=== PATIENT | male | born 1960 | race Caucasian/White ===

== ENCOUNTER 2016-06-30 18:21 | Emergency (ER) | payer OTHER ==
[~2016-06-30] VITALS: Ht 175.2 cm; Wt 78.9 kg
[~2016-06-30 18:21] MED LIST: ACETAMINOPHEN-O1 TAB PO; AMLODIPINE BESYL5 MG PO; AMOXICILLIN500 M2 PO; AUGMENTIN 875875 MG PO; BP MED; CIPRO500 MG PO; CORTISPORIN SUS10 ML OT; HYDROCODONE BIT1 T11 PO; LISINOPRIL5 MG PO; NAPROSYN500 MG PO; NATURE'S BLEND F1 MG PO; NORCO 5-325 TA1 EACH PO; PERCOCET 325 MG1 TA2 PO; PERCOCET 325 MG1 TA7 PO; PREDNISONE50 MG PO; THERA TABS1 TAB PO; TRAMADOL HCL50 MG PO; VICODIN 5/500 505 MG PO; VICODIN 500 MG-1 TAB PO; VICODIN ES 7501 TAB PO; VITAMIN B-11 TAB PO; ZOFRAN4 MG PO; ZOLOFT25 MG PO; [UNRECOGNIZED DRUG - REMARK]
[2016-06-30] MEDS ORDERED: VALIUM10 MG PO (18:41)
[2016-06-30] MEDS ORDERED: ATIVAN1 MG PO (18:41)
[2016-06-30 20:14] LABS: ALBUMIN 3.2 gm/dl (3.1-4.5); ALKALINE PHOSPHATASE 96 U/L (45-117); BILIRUBIN, TOTAL 0.5 mg/dl (0.2-1.0); BUN 14 mg/dl (7-24); CARBON DIOXIDE 26 mmol/L (21-32); CHLORIDE 106 mmol/L (98-107); EST GLOM FILT AFRICAN AMERICAN > 60 ml/min; GLUCOSE 104 mg/dL (65-99); MAGNESIUM 1.8 mg/dL (1.5-2.1); POTASSIUM 3.8 mmol/L (3.5-5.1); SGOT/AST 22 IU/L (3-35); SGPT/ALT 42 U/L (12-78); SODIUM 142 mmol/L (136-145)
[2016-06-30 20:20] LABS: TROPONIN I < 0.015 ng/ml (<0.045)
[2016-06-30 20:32] LABS: BILIRUBIN NEGATIVE (NEGATIVE); BLOOD NEGATIVE (NEGATIVE); CLARITY SL CLOUDY (CLEAR); COLOR YELLOW (YELLOW); GLUCOSE NEGATIVE (NEGATIVE); KETONE NEGATIVE (NEGATIVE); LEUKO ESTERASE NEGATIVE (NEGATIVE); NITRITE NEGATIVE (NEGATIVE); PH 6.5 (5.0-9.0); PROTEIN NEGATIVE (NEGATIVE)
[2016-06-30 20:41] LABS: RBC 0-2 rbc/hpf (0-2); URINE REFLEX COMMENT NO (NO); WBC 0-2 wbc/hpf (0-5)
[2016-06-30 21:13] LABS: BASO # 0.1 10*3/uL (0.0-0.1); BASO % 0.9 % (0.0-1.0); EOS # 0.4 10*3/uL (0.0-0.4); EOS % 4.3 % (1.0-4.0); HEMATOCRIT 31.9 % (42.0-52.0); HEMOGLOBIN 10.3 g/dl (14.0-18.0); LYMPH # 1.7 10*3/uL (1.3-4.4); MEAN CELL VOLUME 92.7 fl (80.0-94.0); MEAN CORPUSCULAR HGB 29.9 pg (27.0-31.0); MEAN CORPUSCULAR HGB CONC 32.3 g/dl (33.0-37.0); MEAN PLATELET VOLUME 9.6 fl (9.6-12.3); MONO # 0.7 10*3/uL (0.1-1.0); MONO % 7.3 % (3.0-9.0); NEUT % 68.3 % (47.0-73.0); PLATELET COUNT AUTOMATED 207 10*3/uL (130-400); RED BLOOD COUNT 3.44 10*6/uL (4.50-5.90); RED CELL DISTRI WIDTH 13.2 % (0-14.5); WHITE BLOOD COUNT 8.9 10*3/uL (4.8-10.8)
[2016-06-30 21:23] LABS: PROTHROMBIN TIME 10.8 SECONDS (9.0-12.4)
[2016-06-30 21:51] VITALS: BP 128/86
[2016-06-30] MEDS ORDERED: ACETAMINOPHEN325 M2 PO (22:44)
[2016-06-30] MEDS ORDERED: MUCINEX DM 30/61 TAB PO (22:44)
[2016-06-30] MEDS ORDERED: ZITHROMAX250 MG PO (22:44)
== END 2016-06-30 22:40 | disposition home or self-care (01) ==
LOC: ED 18:21
PROVIDERS: Emergency Medicine Emergency Medical Services
DX: R07.89 Other chest pain (principal); J20.9 Acute bronchitis, unspecified; F17.210 Nicotine dependence, cigarettes, uncomplicated; J44.9 Chronic obstructive pulmonary disease, unspecified; M19.90 Unspecified osteoarthritis, unspecified site; F12.10 Cannabis abuse, uncomplicated; Z98.890 Other specified postprocedural states; Z79.899 Other long term (current) drug therapy

== ENCOUNTER → 2016-07-16 | Outpatient (CLI) | payer OTHER ==
[~2016-07-16] MED LIST changes: +ACETAMINOPHEN325 M2 PO; +ATIVAN1 MG PO; +MUCINEX DM 30/61 TAB PO; +VALIUM10 MG PO; +ZITHROMAX250 MG PO
[2016-07-17 22:05] LABS: HEPATITIS C QNT 3100000 IU/mL (.)
== END | disposition home or self-care (01) ==
LOC: LAB 15:09
PROVIDERS: Internal Medicine Gastroenterology
DX: B19.20 Unspecified viral hepatitis C without hepatic coma (principal)

== ENCOUNTER → 2016-07-17 | Outpatient (CLI) | payer OTHER | END | disposition home or self-care (01) | LOC: ORTHO 04:00 | DX: M19.042 Primary osteoarthritis, left hand (principal); M19.041 Primary osteoarthritis, right hand; M25.541 Pain in joints of right hand; M25.542 Pain in joints of left hand; M25.532 Pain in left wrist; M25.531 Pain in right wrist; Z47.1 Aftercare following joint replacement surgery ==

== ENCOUNTER → 2016-07-20 | Outpatient (CLI) | payer OTHER ==
--- NOTE | ~2016-07-20 | EKG ---
[place], [place] ELECTROCARDIOGRAM REPORT NAME: LISSA ESPINAL UNIT #: [id number] ROOM: DOCTOR: FORTINO SALCIDO MD BIRTHDATE: [birth year] DOS: 07/21/2016 TIME: 16:14. FINDINGS: 1. Ectopic atrial rhythm with short VT-interval. 2. Otherwise normal electrocardiogram. FORTINO SALCIDO MD CM:EKGRPT:ELECTROCARDIOGRAM REPORT 1903 01 FORTINO SALCIDO MD
== END | disposition home or self-care (01) ==
LOC: RESCLI 11:19
DX: Z01.818 Encounter for other preprocedural examination (principal); I10 Essential (primary) hypertension; J45.31 Mild persistent asthma with (acute) exacerbation; F41.9 Anxiety disorder, unspecified

== ENCOUNTER → 2016-08-06 | Outpatient (CLI) | payer OTHER ==
[~2016-08-06] VITALS: Ht 175.2 cm; Wt 74.8 kg
[~2016-08-06] MED LIST changes: +MOTRIN 600 MG E4 TAB PO
--- NOTE | ~2016-08-06 | EKG ---
[place], [place] ELECTROCARDIOGRAM REPORT NAME: LISSA ESPINAL UNIT #: [id number] ROOM: DOCTOR: FORTINO SALCIDO MD BIRTHDATE: [birth year] DOS: 08/06/2016 TIME: 1451 hours. FINDINGS: 1. Normal sinus rhythm with probable ectopic atrial pacer and short HI interval. 2. Otherwise normal electrocardiogram. FORTINO SALCIDO MD CM:EKGRPT:ELECTROCARDIOGRAM REPORT [id number] FORTINO SALCIDO MD
[2016-08-06 14:31] LABS: BASO # 0.1 10*3/uL (0.0-0.1); BASO % 1.2 % (0.0-1.0); EOS # 0.5 10*3/uL (0.0-0.4); EOS % 5.5 % (1.0-4.0); HEMATOCRIT 37.7 % (42.0-52.0); LYMPH # 2.4 10*3/uL (1.3-4.4); LYMPH % 26.1 % (27.0-41.0); MEAN CELL VOLUME 93.8 fl (80.0-94.0); MEAN CORPUSCULAR HGB 29.9 pg (27.0-31.0); MEAN CORPUSCULAR HGB CONC 31.8 g/dl (33.0-37.0); MEAN PLATELET VOLUME 9.2 fl (9.6-12.3); MONO # 0.7 10*3/uL (0.1-1.0); NEUT # 5.4 10*3/uL (2.3-7.9); NEUT % 59.1 % (47.0-73.0); PLATELET COUNT AUTOMATED 214 10*3/uL (130-400); RED BLOOD COUNT 4.02 10*6/uL (4.50-5.90); RED CELL DISTRI WIDTH 13.2 % (0-14.5); WHITE BLOOD COUNT 9.1 10*3/uL (4.8-10.8)
[2016-08-06 14:38] LABS: BILIRUBIN NEGATIVE (NEGATIVE); BLOOD NEGATIVE (NEGATIVE); CLARITY SL CLOUDY (CLEAR); COLOR YELLOW (YELLOW); GLUCOSE NEGATIVE (NEGATIVE); KETONE NEGATIVE (NEGATIVE); LEUKO ESTERASE NEGATIVE (NEGATIVE); NITRITE NEGATIVE (NEGATIVE); PH 5.5 (5.0-9.0); PROTEIN NEGATIVE (NEGATIVE); UROBILINOGEN 0.2 E.U./dl (0.2-1.0)
[2016-08-06 15:01] LABS: ALBUMIN 3.6 gm/dl (3.1-4.5); ALKALINE PHOSPHATASE 75 U/L (45-117); BILIRUBIN, TOTAL 0.2 mg/dl (0.2-1.0); BUN 14 mg/dl (7-24); CARBON DIOXIDE 29 mmol/L (21-32); CHLORIDE 108 mmol/L (98-107); EST GLOM FILT AFRICAN AMERICAN > 60 ml/min; GLUCOSE 76 mg/dL (65-99); POTASSIUM 4.2 mmol/L (3.5-5.1); SGOT/AST 28 IU/L (3-35); SGPT/ALT 28 U/L (12-78); SODIUM 144 mmol/L (136-145)
[2016-08-06 15:06] LABS: URINE REFLEX COMMENT NO (NO)
== END | disposition home or self-care (01) ==
LOC: SDC 12:30 → LAB 13:43 → SDC 08-11 04:20 → EDSTATUS 08-11 12:30
PROVIDERS: Orthopaedic Surgery
DX: Z01.818 Encounter for other preprocedural examination (principal); J43.9 Emphysema, unspecified; Q70.01 Fused fingers, right hand; M18.11 Unilateral primary osteoarthritis of first carpometacarpal joint, right hand; Z87.891 Personal history of nicotine dependence

== ENCOUNTER → 2016-08-26 | Day surgery (SDC) | payer OTHER ==
[~2016-08-26] VITALS: Ht 175.2 cm; Wt 74.8 kg
--- NOTE | ~2016-08-26 | O ---
[place], [place] OPERATIVE NOTE NAME: LISSA ESPINAL UNIT #: [id number] ROOM: DOCTOR: YEHUDA WATT MD BIRTHDATE: [birth year] DOS: 08/26/2016 GASTROENDOSCOPIC REPORT HISTORY OF PRESENT ILLNESS: The patient is a 55 years old patient who has presented with black tarry stool, undergoing investigation. PAST MEDICAL HISTORY: Hypertension and abdominal trauma history. PAST SURGICAL HISTORY: None. FAMILY HISTORY: Noncontributory. ALLERGIES: No known medication. PROCEDURE: Today's procedure part of investigation is panendoscopy and colonoscopy. PREMEDICATION: Versed and Diprivan. SCOPE: Olympus forward-viewing gastroscope Q10 video. REPORT: After putting the patient in the left lateral position and application of lubricant to the scope, the scope was introduced. Thereafter, under direct visualization, I advanced through the length of esophagus without difficulty. About 3 cm hiatal hernia was appreciated. The gastric pouch was entered, gastritis seen. Duodenal bulb, second and third part within normal limits. The patient was gradually extubated after antral biopsy, tolerated the procedure well. IMPRESSION: Hiatal hernia, gastritis. PLAN AND DISCUSSION: We are going to keep this patient on omeprazole 20 mg 1 q. day and clinical reassessment. Antireflux measure, elevation of the head of bed 6 inches all time. We are going to proceed with colonoscopic evaluation. GASTROENDOSCOPIC REPORT INDICATIONS: The patient with GI bleed, undergoing investigation. Today's endoscopic assessment has been associated with gastritis, hiatal hernia. The patient has been assigned to have omeprazole 20 mg q. day. PROCEDURE: Today's procedure part of investigation is colonoscopy plus polypectomy. PREMEDICATION: Versed and Diprivan. SCOPE: Olympus forward-viewing colonoscope 10L video. REPORT: After putting the patient in the left lateral position and application [place], [place] OPERATIVE NOTE NAME: LISSA ESPINAL UNIT #: [id number] ROOM: DOCTOR: YEHUDA WATT MD BIRTHDATE: [birth year] of lubricant to the scope, the scope was introduced. Thereafter, under direct visualization, I advanced through the length of colon without difficulty. Base of the cecum was explored, the appendiceal orifice was identified, and ileocecal valve was defined. The patient was gradually extubated to the rectosigmoid area. A sessile polypoid lesion with piecemeal polypectomy was removed. The patient was gradually extubated and tolerated the procedure well. IMPRESSION: Sessile polyp lesion, rectosigmoid anatomy, status-post piecemeal polypectomy. PLAN: High fiber fruit diet. Activity ad aguilar. Followup routinely with you in office, p.r.n. visit with us in GI Clinic. Thank you very much indeed. YEHUDA WATT MD CM:OPRECORD:OPERATIVE NOTE 1322 15 YEHUDA WATT MD 08/26/161916 interface
[2016-08-26 10:00] VITALS: BP 182/96
[2016-08-26 13:15] VITALS: BP 107/77
[2016-08-26 13:30] VITALS: BP 120/80
[2016-08-26 13:43] VITALS: BP 146/95
== END | disposition home or self-care (01) ==
LOC: SDC 08-24 13:15
DX: K62.1 Rectal polyp (principal); K29.50 Unspecified chronic gastritis without bleeding; K44.9 Diaphragmatic hernia without obstruction or gangrene; I10 Essential (primary) hypertension; B19.20 Unspecified viral hepatitis C without hepatic coma; J43.9 Emphysema, unspecified; Z86.14 Personal history of Methicillin resistant Staphylococcus aureus infection; Z98.890 Other specified postprocedural states; F17.210 Nicotine dependence, cigarettes, uncomplicated

== ENCOUNTER → 2016-09-09 | Outpatient (CLI) | payer OTHER ==
[~2016-09-09] VITALS: Ht 175.2 cm; Wt 74.8 kg
== END | disposition home or self-care (01) ==
LOC: SDC 08-11 08:30 → RAD 00:01 → LAB 13:15 → SDC 13:15 → EDSTATUS 13:15 → SDC 09-17 07:30
DX: M19.042 Primary osteoarthritis, left hand (principal); Q70.01 Fused fingers, right hand; S52.202D Unspecified fracture of shaft of left ulna, subsequent encounter for closed fracture with routine healing; X58.XXXD Exposure to other specified factors, subsequent encounter

== ENCOUNTER → 2016-09-17 | Day surgery (SDC) | payer OTHER ==
[2016-09-17] VITALS (15 sets, daily range): BP systolic 112–159; BP diastolic 72–105
[~2016-09-17] MED LIST changes: +PERCOCET 325 MG1 TA5 PO
--- NOTE | ~2016-09-17 | O ---
[place], [place] OPERATIVE NOTE NAME: LISSA ESPINAL [facility] #: [id number] UNIT #: [id number] ROOM: DOCTOR: LONG LOUIS DO BIRTHDATE: [birth year] DOS: 09/17/2016 PREOPERATIVE DIAGNOSIS: Right thumb metacarpophalangeal arthritis and instability. POSTOPERATIVE DIAGNOSIS: Right thumb metacarpophalangeal arthritis and instability. OPERATIVE PROCEDURE: Right thumb metacarpophalangeal fusion and bone graft. SURGEON: Long Louis D.O. INFORMATION SYSTEMS SECURITY SPECIALIST: Roberta. ANESTHESIA: JAYA Bustillos. INDICATIONS: The patient is a 55-year-old male with a history of right thumb pain and instability, unrelieved with conservative care. The risks and benefits of the procedure were explained to the patient preoperatively. Preoperative labs and x-rays were obtained including preoperative medical and pulmonary consultation. DESCRIPTION OF PROCEDURE: The right thumb was marked in the holding room. The patient was brought to the operative suite. A general anesthetic with endotracheal intubation was performed. The timeout was performed. The right upper extremity was prepped and draped in the usual orthopedic manner. The tourniquet was applied to the right upper extremity. The right upper extremity was exsanguinated. The tourniquet was inflated to 250 mmHg. A V-shaped incision was made over the metacarpophalangeal joint of the thumb. Subcutaneous tissue was spread down to the level of the extensor mechanism. The extensor mechanism was entered along the wrapped radial edge of the extensor sanchez. Tendon was retracted ulnarly. The capsule was identified and opened at the midline. Rongeur was used to remove any synovitis. Osteophyte and articular surface were removed in a dome fashion for the proximal phalanx and in a rounded fashion for the first metacarpal. The thumb was reduced in a position of approximately 10 degrees of flexion in neutral varus or valgus position. Position was evaluated under C-arm in multiple planes. The area was copiously irrigated with normal saline. A single K-wire was placed from the distal phalanx through the proximal phalanx and into the metacarpal. Then, the position of the metacarpophalangeal joint was evaluated. This was found to be adequate. Two 0.062 K-wires were placed in a crossed position about the metacarpophalangeal joint. Position was evaluated under C-arm in multiple planes. When this was found to be adequate, the wires were cut and bent. The reduction was confirmed under C-arm. The area was copiously irrigated with normal saline. The metacarpophalangeal joint was filled with Cerament bone void filler. This was allowed to set. The wound was closed in a layered fashion with the extensor tendon return to a normal position. The skin was closed with 4-0 Prolene in a horizontal mattress [place], [place] OPERATIVE NOTE NAME: LISSA ESPINAL UNIT #: [id number] ROOM: DOCTOR: LONG LOUIS DO BIRTHDATE: [birth year] suture fashion. Final x-rays were obtained. Xeroform, 4 x 4s and a well-padded thumb spica splint was applied. The tourniquet was released prior to application of the splint. The anesthetic was reversed. The patient was extubated and taken to the recovery room in satisfactory condition. COUNT: Sponge and needle count correct. ESTIMATED BLOOD LOSS: 5 mL. SPECIMENS: None. DRAINS: None. PACKING: None. COMPLICATIONS: None. IMPLANTS: K-wire 0.062 x3 and Cerament bone void filler. FINDINGS: Severe degenerative changes of the metacarpophalangeal joint of the right thumb with instability. LONG LOUIS DO CM:OPRECORD:OPERATIVE NOTE 1105 1531 LONG LOUIS DO 09/23/16 0014 interface
== END | disposition home or self-care (01) ==
LOC: SDC 07:18
DX: M19.041 Primary osteoarthritis, right hand (principal); F17.210 Nicotine dependence, cigarettes, uncomplicated; J43.9 Emphysema, unspecified; I10 Essential (primary) hypertension; F32.9 Major depressive disorder, single episode, unspecified; F41.9 Anxiety disorder, unspecified; Z79.1 Long term (current) use of non-steroidal anti-inflammatories (NSAID); Z79.899 Other long term (current) drug therapy; Z86.14 Personal history of Methicillin resistant Staphylococcus aureus infection; J45.909 Unspecified asthma, uncomplicated; Z87.01 Personal history of pneumonia (recurrent); B19.20 Unspecified viral hepatitis C without hepatic coma; Z98.890 Other specified postprocedural states

== ENCOUNTER → 2016-10-05 | Outpatient (CLI) | payer OTHER | END | disposition home or self-care (01) | LOC: ORTHO 02:17 | DX: Z09 Encounter for follow-up examination after completed treatment for conditions other than malignant neoplasm (principal) ==

== ENCOUNTER → 2016-10-20 | Outpatient (CLI) | payer OTHER ==
[2016-10-20 15:45] LABS: BASO # 0.1 10*3/uL (0.0-0.1); EOS # 0.8 10*3/uL (0.0-0.4); EOS % 8.4 % (1.0-4.0); HEMATOCRIT 43.6 % (42.0-52.0); HEMOGLOBIN 14.5 g/dl (14.0-18.0); LYMPH # 2.8 10*3/uL (1.3-4.4); LYMPH % 28.2 % (27.0-41.0); MEAN CELL VOLUME 86.5 fl (80.0-94.0); MEAN CORPUSCULAR HGB 28.8 pg (27.0-31.0); MEAN CORPUSCULAR HGB CONC 33.3 g/dl (33.0-37.0); MEAN PLATELET VOLUME 8.5 fl (9.6-12.3); MONO # 0.6 10*3/uL (0.1-1.0); MONO % 6.3 % (3.0-9.0); NEUT # 5.6 10*3/uL (2.3-7.9); NEUT % 55.8 % (47.0-73.0); PLATELET COUNT AUTOMATED 229 10*3/uL (130-400); RED BLOOD COUNT 5.04 10*6/uL (4.50-5.90); RED CELL DISTRI WIDTH 12.9 % (0-14.5)
== END | disposition home or self-care (01) ==
LOC: ORTHO 02:52
PROVIDERS: Orthopaedic Surgery
DX: L03.90 Cellulitis, unspecified (principal)

== ENCOUNTER → 2016-10-23 | Outpatient (CLI) | payer OTHER | END | disposition home or self-care (01) | LOC: ORTHO 02:55 | DX: S62.511D Displaced fracture of proximal phalanx of right thumb, subsequent encounter for fracture with routine healing (principal); Z98.890 Other specified postprocedural states; X58.XXXD Exposure to other specified factors, subsequent encounter ==

== ENCOUNTER → 2016-10-28 | Outpatient (CLI) | payer OTHER | END | disposition home or self-care (01) | LOC: ORTHO 03:16 | DX: S62.511D Displaced fracture of proximal phalanx of right thumb, subsequent encounter for fracture with routine healing (principal); X58.XXXD Exposure to other specified factors, subsequent encounter ==

== ENCOUNTER → 2016-11-04 | Outpatient (CLI) | payer OTHER | END | disposition home or self-care (01) | LOC: ORTHO 03:15 | DX: Z47.89 Encounter for other orthopedic aftercare (principal); Q70.01 Fused fingers, right hand ==

== ENCOUNTER → 2016-11-11 | Outpatient (CLI) | payer OTHER ==
[2016-11-11 11:31] LABS: BASO # 0.1 10*3/uL (0.0-0.1); BASO % 1.1 % (0.0-1.0); EOS # 0.4 10*3/uL (0.0-0.4); EOS % 6.5 % (1.0-4.0); HEMATOCRIT 38.1 % (42.0-52.0); HEMOGLOBIN 12.5 g/dl (14.0-18.0); LYMPH % 34.7 % (27.0-41.0); MEAN CELL VOLUME 90.7 fl (80.0-94.0); MEAN CORPUSCULAR HGB 29.8 pg (27.0-31.0); MEAN CORPUSCULAR HGB CONC 32.8 g/dl (33.0-37.0); MEAN PLATELET VOLUME 8.8 fl (9.6-12.3); MONO # 0.4 10*3/uL (0.1-1.0); MONO % 6.9 % (3.0-9.0); NEUT # 2.8 10*3/uL (2.3-7.9); NEUT % 50.3 % (47.0-73.0); PLATELET COUNT AUTOMATED 145 10*3/uL (130-400); RED CELL DISTRI WIDTH 15.7 % (0-14.5); WHITE BLOOD COUNT 5.7 10*3/uL (4.8-10.8)
== END | disposition home or self-care (01) ==
LOC: LAB 04:07 → ORTHO 04:07
PROVIDERS: Orthopaedic Surgery
DX: T81.4XXD Infection following a procedure, subsequent encounter (principal)

== ENCOUNTER → 2016-11-27 | Outpatient (CLI) | payer OTHER | END | disposition home or self-care (01) | LOC: ORTHO 02:09 | DX: Z47.89 Encounter for other orthopedic aftercare (principal); Z98.890 Other specified postprocedural states ==

== ENCOUNTER → 2016-12-04 | Outpatient (CLI) | payer OTHER | END | disposition home or self-care (01) | LOC: ORTHO 03:03 | DX: S62.201D Unspecified fracture of first metacarpal bone, right hand, subsequent encounter for fracture with routine healing (principal); X58.XXXD Exposure to other specified factors, subsequent encounter ==

== ENCOUNTER → 2016-12-28 | Outpatient (CLI) | payer OTHER ==
[2016-12-28 16:01] LABS: BASO # 0.1 10*3/uL (0.0-0.1); EOS # 0.3 10*3/uL (0.0-0.4); EOS % 3.4 % (1.0-4.0); HEMATOCRIT 40.2 % (42.0-52.0); HEMOGLOBIN 13.3 g/dl (14.0-18.0); LYMPH # 2.3 10*3/uL (1.3-4.4); MEAN CELL VOLUME 95.7 fl (80.0-94.0); MEAN CORPUSCULAR HGB 31.7 pg (27.0-31.0); MEAN CORPUSCULAR HGB CONC 33.1 g/dl (33.0-37.0); MEAN PLATELET VOLUME 8.8 fl (9.6-12.3); MONO # 0.7 10*3/uL (0.1-1.0); MONO % 8.4 % (3.0-9.0); NEUT # 4.4 10*3/uL (2.3-7.9); NEUT % 56.9 % (47.0-73.0); PLATELET COUNT AUTOMATED 169 10*3/uL (130-400); RED CELL DISTRI WIDTH 13.5 % (0-14.5); WHITE BLOOD COUNT 7.8 10*3/uL (4.8-10.8)
== END | disposition home or self-care (01) ==
LOC: LAB 02:02 → ORTHO 02:02
PROVIDERS: Orthopaedic Surgery
DX: R79.89 Other specified abnormal findings of blood chemistry (principal); Z98.890 Other specified postprocedural states

== ENCOUNTER → 2017-01-25 | Outpatient (CLI) | payer OTHER | END | disposition home or self-care (01) | LOC: ORTHO 03:24 | DX: Z47.89 Encounter for other orthopedic aftercare (principal); M79.644 Pain in right finger(s); Z98.890 Other specified postprocedural states ==

== ENCOUNTER → 2017-02-22 | Outpatient (CLI) | payer OTHER | LOC: ORTHO 03:48 | DX: M81.8 Other osteoporosis without current pathological fracture (principal); S52.222D Displaced transverse fracture of shaft of left ulna, subsequent encounter for closed fracture with routine healing; Z98.890 Other specified postprocedural states ==

== ENCOUNTER 2017-03-18 01:15 | Emergency (ER) | payer OTHER ==
[~2017-03-18] VITALS: Ht 175.2 cm; Wt 77.1 kg
[2017-03-18 01:23] VITALS: BP 143/95
[2017-03-18] MEDS ORDERED: CYCLOBENZAPRINE10 MG PO (01:28)
[2017-03-18] MEDS ORDERED: NAPROSYN500 MG PO (01:28)
[2017-03-18] MEDS ORDERED: PREDNISONE50 MG PO (01:28)
== END 2017-03-18 02:57 | disposition home or self-care (01) ==
LOC: ED 01:15
DX: M54.9 Dorsalgia, unspecified (principal); F17.200 Nicotine dependence, unspecified, uncomplicated; F12.10 Cannabis abuse, uncomplicated; J44.9 Chronic obstructive pulmonary disease, unspecified; E87.6 Hypokalemia; Z79.899 Other long term (current) drug therapy

== ENCOUNTER → 2017-04-02 | Outpatient (CLI) | payer OTHER ==
[~2017-04-02] MED LIST changes: +CYCLOBENZAPRINE10 MG PO
== END | disposition home or self-care (01) ==
LOC: ORTHO 00:38
DX: M25.531 Pain in right wrist (principal); S62.102A Fracture of unspecified carpal bone, left wrist, initial encounter for closed fracture; X58.XXXA Exposure to other specified factors, initial encounter; Y93.9 Activity, unspecified; Y92.9 Unspecified place or not applicable; Y99.9 Unspecified external cause status

== ENCOUNTER 2017-10-16 12:40 | Emergency (ER) | payer OTHER ==
[~2017-10-16] VITALS: Ht 170.1 cm; Wt 72.6 kg
[2017-10-16 12:41] VITALS: BP 138/98
[2017-10-16] MEDS ORDERED: CHLORZOXAZONE500 M2 PO (13:04)
[2017-10-16] MEDS ORDERED: NAPROSYN500 MG PO (13:04)
== END 2017-10-16 14:17 | disposition home or self-care (01) ==
LOC: ED 12:40
DX: S30.0XXA Contusion of lower back and pelvis, initial encounter (principal); R03.0 Elevated blood-pressure reading, without diagnosis of hypertension; F17.200 Nicotine dependence, unspecified, uncomplicated; F12.10 Cannabis abuse, uncomplicated; J44.9 Chronic obstructive pulmonary disease, unspecified; M19.90 Unspecified osteoarthritis, unspecified site; Z98.890 Other specified postprocedural states; Z79.899 Other long term (current) drug therapy; W22.03XA Walked into furniture, initial encounter; Y93.89 Activity, other specified; Y92.89 Other specified places as the place of occurrence of the external cause; Y99.9 Unspecified external cause status

== ENCOUNTER → 2017-10-22 | Outpatient (CLI) | payer OTHER ==
[~2017-10-22] MED LIST changes: +CHLORZOXAZONE500 M2 PO
== END ==
LOC: ORTHO 04:08
DX: M79.646 Pain in unspecified finger(s) (principal); Z91.81 History of falling

== ENCOUNTER 2018-03-07 22:04 | Emergency (ER) | payer OTHER ==
[~2018-03-07] VITALS: Ht 175.2 cm; Wt 70.3 kg
--- NOTE | ~2018-03-07 | EKG ---
[place], [place] ELECTROCARDIOGRAM REPORT NAME: LISSA ESPINAL UNIT #: [id number] ROOM: DOCTOR: SUPA DRAFT REPORT BIRTHDATE: [birth year] [facility] Test Date: 2018-03-07 Test Time: 22:41:08 Pat Name: LISSA ESPINAL Department: Room: Gender: M Other Spatial Scientist: ANA ROSA : 1960 Requested By: HELGA RILEY Order Number: [id number] Reading MD: Pranay Palacios MD Measurements Intervals [place] Rate: 85 P: -79 VA: 79 QRS: -17 QRSD: 98 T: 46 QT: 383 QTc: 456 Interpretive Statements Ectopic atrial rhythm Short VA interval Borderline left axis deviation Baseline wander in lead(s) V1 Electronically Signed On 03-10-2018 3:14:27 PST by Pranay Palacios MD CM:EKGRPT:ELECTROCARDIOGRAM REPORT [id number] [id number] HELGA LEON DRAFT REPORT HELGA RILEY DO
[~2018-03-07 22:04] MED LIST changes: +DOXYCYCLINE MO100 M1 PO; +TRAZODONE50 MG PO; +ZESTRIL10 MG PO
[2018-03-07 22:43] LABS: BASO # 0.2 10*3/uL (0.0-0.1); BASO % 1.4 % (0.0-1.0); EOS # 0.4 10*3/uL (0.0-0.4); EOS % 3.3 % (1.0-4.0); HEMOGLOBIN 12.2 g/dl (14.0-18.0); LYMPH # 2.4 10*3/uL (1.3-4.4); LYMPH % 21.4 % (27.0-41.0); MEAN CELL VOLUME 93.9 fl (80.0-94.0); MEAN PLATELET VOLUME 8.5 fl (9.6-12.3); MONO # 0.8 10*3/uL (0.1-1.0); MONO % 7.4 % (3.0-9.0); NEUT # 7.5 10*3/uL (2.3-7.9); PLATELET COUNT AUTOMATED 474 10*3/uL (130-400); RED BLOOD COUNT 3.94 10*6/uL (4.50-5.90); RED CELL DISTRI WIDTH 12.1 % (0-14.5); WHITE BLOOD COUNT 11.4 10*3/uL (4.8-10.8)
[2018-03-07 23:00] LABS: ALBUMIN 3.4 gm/dl (3.1-4.5); ALKALINE PHOSPHATASE 71 U/L (45-117); BUN 18 mg/dl (7-24); CHLORIDE 106 mmol/L (98-107); CREATININE 1.02 mg/dL (0.70-1.30); POTASSIUM 3.8 mmol/L (3.5-5.1); SGOT/AST 23 IU/L (3-35); SGPT/ALT 24 U/L (12-78); SODIUM 143 mmol/L (136-145); TOTAL PROTEIN 7.3 gm/dL (6.4-8.2)
[2018-03-07 23:01] LABS: TROPONIN I < 0.015 ng/ml (<0.045)
[2018-03-08 00:37] VITALS: BP 148/104
== END 2018-03-08 01:30 | disposition home or self-care (01) ==
LOC: ED 22:04
PROVIDERS: Student in an Organized Health Care Education/Training Program
DX: R09.1 Pleurisy (principal); J44.9 Chronic obstructive pulmonary disease, unspecified; F17.200 Nicotine dependence, unspecified, uncomplicated; Z79.899 Other long term (current) drug therapy

== ENCOUNTER 2019-06-11 09:48 | Emergency (ER) | payer OTHER ==
[~2019-06-11] VITALS: Ht 175.2 cm; Wt 74.8 kg
[2019-06-11 10:12] VITALS: BP 152/102
[2019-06-11 12:02] LABS: BILIRUBIN NEGATIVE (NEGATIVE); BLOOD NEGATIVE (NEGATIVE); CLARITY CLEAR (CLEAR); COLOR YELLOW (YELLOW); GLUCOSE NEGATIVE (NEGATIVE); KETONE NEGATIVE (NEGATIVE); SPECIFIC GRAVITY 1.015 (1.005-1.030); UROBILINOGEN 0.2 E.U./dl (0.2-1.0)
[2019-06-11 12:03] LABS: LEUKO ESTERASE NEGATIVE (NEGATIVE); MUCOUS 2+; NITRITE NEGATIVE (NEGATIVE)
[2019-06-11] MEDS ORDERED: Motrin,Rufen800 MG PO (12:06)
[2019-06-11] MEDS ORDERED: NORCO 5-325 TA1 EACH PO (12:06)
== END 2019-06-11 12:21 | disposition home or self-care (01) ==
LOC: ED 09:48
PROVIDERS: Physician Assistant
DX: S20.20XA Contusion of thorax, unspecified, initial encounter (principal); I10 Essential (primary) hypertension; J45.909 Unspecified asthma, uncomplicated; F17.200 Nicotine dependence, unspecified, uncomplicated; Z79.899 Other long term (current) drug therapy; W00.0XXA Fall on same level due to ice and snow, initial encounter; Y93.89 Activity, other specified; Y92.89 Other specified places as the place of occurrence of the external cause; Y99.8 Other external cause status

== ENCOUNTER 2019-06-20 10:19 | Inpatient (IN) | payer OTHER ==
[~2019-06-20] VITALS: Ht 175.2 cm; Wt 59.9 kg
[2019-06-20 10:19] VITALS: BP 134/70
[~2019-06-20 10:19] MED LIST changes: +Motrin,Rufen800 MG PO
[2019-06-20 10:49] LABS: BASO % 0.4 % (0.0-1.0); EOS # 0.1 10*3/uL (0.0-0.4); EOS % 0.7 % (1.0-4.0); HEMATOCRIT 42.1 % (42.0-52.0); HEMOGLOBIN 14.7 g/dl (14.0-18.0); LYMPH % 9.2 % (27.0-41.0); MEAN CELL VOLUME 91.9 fl (80.0-94.0); MEAN CORPUSCULAR HGB 32.1 pg (27.0-31.0); MEAN CORPUSCULAR HGB CONC 34.9 g/dl (33.0-37.0); MONO # 0.5 10*3/uL (0.1-1.0); MONO % 4.5 % (3.0-9.0); NEUT # 9.4 10*3/uL (2.3-7.9); NEUT % 84.8 % (47.0-73.0); PLATELET COUNT AUTOMATED 141 10*3/uL (130-400); RED BLOOD COUNT 4.58 10*6/uL (4.50-5.90); RED CELL DISTRI WIDTH 11.6 % (0-14.5)
[2019-06-20 11:00] LABS: ACT PARTIAL THROMBO TIME 21.7 SECONDS (20.0-32.1)
[2019-06-20 11:04] LABS: ALBUMIN 3.3 gm/dl (3.1-4.5); ALKALINE PHOSPHATASE 100 U/L (45-117); BUN 11 mg/dl (7-24); CHLORIDE 82 mmol/L (98-107); CREATININE 1.39 mg/dL (0.70-1.30); LIPASE 132 U/L (73-393); POTASSIUM 2.6 mmol/L (3.5-5.1); SGOT/AST 186 IU/L (3-35); SGPT/ALT 51 U/L (12-78); SODIUM 123 mmol/L (136-145); TOTAL PROTEIN 7.1 gm/dL (6.4-8.2)
[2019-06-20 11:10] LABS: TROPONIN I < 0.015 ng/ml (<0.045)
--- NOTE | 2019-06-20 12:34 | NUR ---
PATIENT WALKED TO [facility] ROOM TO GET WASHED UP AT THIS TIME. WAS INCONTINANT OF BOWEL PRIOR TO ARRIVAL. WILL THEN TRANSPORT PATIENT TO .
[2019-06-20 13:25] VITALS: BP 120/87
--- NOTE | 2019-06-20 13:25 | NUR ---
A 58, admitted to , under the services of CAROL ANN Allen DO with a diagnosis of HYPONATREMIA,SYNCOPE,HEAD LAC FROM FALL.. Chief complaint is SYNCOPE. Patient arrived via BED from ER. Monitor applied. Initial assessment completed. Vital signs taken and recorded. CAROL ANN ALLEN DO notified of admission to the unit. Orders received. See assessment for past medical history, medications and allergies. Patient and/or family oriented to unit. [facility] visitation policy reviewed. Clothing/patient valuable form completed. PEYTON VAUGHAN
--- NOTE | 2019-06-20 13:25 | NUR ---
A 58, admitted to , under the services of CAROL ANN Allen DO with a diagnosis of SYNCOPE. Chief complaint is SYNCOPE/PAIN. Patient arrived via stretcher from ER. Monitor applied. Initial assessment completed. Vital signs taken and recorded. CAROL ANN ALLEN DO notified of admission to the unit. Orders received. See assessment for past medical history, medications and allergies. Patient and/or family oriented to unit. [facility] visitation policy reviewed. Clothing/patient valuable form completed. MACHELLE BAIN
[2019-06-20 15:02] LABS: BILIRUBIN NEGATIVE (NEGATIVE); BLOOD TRACE-INTACT (NEGATIVE); CLARITY CLEAR (CLEAR); COLOR YELLOW (YELLOW); GLUCOSE NEGATIVE (NEGATIVE); KETONE NEGATIVE (NEGATIVE); LEUKO ESTERASE NEGATIVE (NEGATIVE); NITRITE NEGATIVE (NEGATIVE); SPECIFIC GRAVITY 1.015 (1.005-1.030); UROBILINOGEN 0.2 E.U./dl (0.2-1.0)
[2019-06-20 15:08] LABS: URINE AMPHETAMINES < 1000 (1000ng/ml); URINE BARBITURATES < 200 (200ng/ml); URINE BENZODIAZEPINES > 200 (200ng/ml); URINE CANNABINOIDS (THC) > 50 (50ng/ml); URINE COCAINE < 300 (300ng/ml); URINE METHADONE < 300 (300ng/ml); URINE OPIATES < 300 (300ng/ml)
[2019-06-20 15:10] LABS: BACTERIA 1+
[2019-06-20 15:22] LABS: URINE PHENCYCLIDINE < 25 (25ng/ml)
[2019-06-20 16:00] VITALS: BP 127/80
--- NOTE | 2019-06-20 17:11 | NUR ---
PT COMPLAIN OF NAUSEA, ZOFRAN GIVEN
--- NOTE | 2019-06-20 19:00 | NUR ---
ASSUMED CARE FOR THIS PT AT THIS TIME. C/O MILD EPIGASTRIC PAIN. DENIES NEED FOR ANTACID. REMINDED PT NEED FOR STOOL SAMPLE FOR CDIFF/CX. CALL LIGHT IN REACH. NO S/S OF WITHDRAWALS NOTED OR EXPRESSED.
[2019-06-20 19:11] LABS: CREATININE 1.98 mg/dL (0.70-1.30); POTASSIUM 3.3 mmol/L (3.5-5.1)
--- NOTE | 2019-06-20 19:42 | NUR ---
DR. GONZALEZ AWARE OF RESULTS OF LAB WORK. NO NEW ORDERS GIVEN AT THIS TIME. FINISH MVI BAG ORDERED, NO MORE IV FLUIDS, CHECK LABS IN AM ORDERED.
[2019-06-20 20:00] VITALS: BP 105/71
--- NOTE | 2019-06-20 23:15 | NUR ---
ASSUMED CARE FOR PT. PT RESTING IN BED WITH NO COMPLAINTS. RESPS EASY AND REGULAR. CALL LIGHT IN REACH. WILL MONITOR.
[2019-06-21] VITALS: BP 127/88
--- NOTE | 2019-06-21 04:42 | NUR ---
24 HR chart check completed.
--- NOTE | 2019-06-21 06:12 | NUR ---
LISSA ESPINAL [id number] Please refer to the physician's history and physical for past medical history, comorbid conditions, and allergies. Diagnosis: HYPONATREMIA SYNCOPE SCALP LACERATION HYPOKALEMIA Gilbert Score: 21,LOW OR NO RISK WOUND DESCRIPTIONS: Wound Number: 1 Location of the wound: back of head Type of wound: laceration Thickness: Partial Size: 0.9cm x 0.2cm x <0.1cm Tunneling: none Undermining: none Sinus Tract: none Presence of Exudate: none Amount: None Color: Red Odor: None Periwound Skin Appearance: Normal Wound edges: approximated with 1 staple Pain (associated with wound): tender to touch How does patient state this happened? pt stated he collasped in court yesterday and was brought here to the ER Surface the patient is resting on: Isoflex SKIN PREVENTION RECOMMENDATION: 1. Pressure redistribution support surface as appropriate 2. Elevate heels 3. Remove boots/TEDS every shift and reapply 4. Head of bed 30 degrees as tolerated 5. Assess nutrition and hydration 6. Manage moisture 7. Avoid the use of containment devices while in bed 8. Use absorptive products on surfaces limit layers of linens on bed 9. Turn and reposition every 1-2 hours in bed and every 1 hour in chair as tolerated 10. Weight shifts every 15 minutes while up in chair 11. Offloading with pillows or device to keep heels elevated off bed 12. Monitor skin at least every shift 13. Inspect under medical devices twice a day WOUND TREATMENT RECOMMENDATIONS: Keep area clean and dry and remove staple from head in 7-10days. Patient is refusing follow up care he stated that his friend will remove the staple from his head.
[2019-06-21 06:35] LABS: BASO % 0.4 % (0.0-1.0); EOS # 0.2 10*3/uL (0.0-0.4); EOS % 2.3 % (1.0-4.0); HEMATOCRIT 35.9 % (42.0-52.0); HEMOGLOBIN 12.2 g/dl (14.0-18.0); LYMPH # 1.9 10*3/uL (1.3-4.4); LYMPH % 26.2 % (27.0-41.0); MEAN CELL VOLUME 92.8 fl (80.0-94.0); MEAN CORPUSCULAR HGB 31.5 pg (27.0-31.0); MEAN PLATELET VOLUME 10.2 fl (9.6-12.3); MONO # 0.5 10*3/uL (0.1-1.0); MONO % 6.3 % (3.0-9.0); NEUT # 4.8 10*3/uL (2.3-7.9); NEUT % 64.7 % (47.0-73.0); PLATELET COUNT AUTOMATED 114 10*3/uL (130-400); RED BLOOD COUNT 3.87 10*6/uL (4.50-5.90); RED CELL DISTRI WIDTH 11.6 % (0-14.5); WHITE BLOOD COUNT 7.3 10*3/uL (4.8-10.8)
[2019-06-21 06:42] LABS: ACT PARTIAL THROMBO TIME 21.4 SECONDS (20.0-32.1); INTERNATIONAL NORM RATIO 0.9 (2.0-3.5)
[2019-06-21 06:48] LABS: ALBUMIN 2.7 gm/dl (3.1-4.5); CREATININE 1.79 mg/dL (0.70-1.30); FREE T4 0.95 ng/dl (0.76-1.46); PHOSPHOROUS 3.6 mg/dL (2.5-4.9); POTASSIUM 3.2 mmol/L (3.5-5.1); TOTAL PROTEIN 5.7 gm/dL (6.4-8.2)
[2019-06-21 06:53] LABS: THYROID STIM HORMONE (HS) 1.09 uIU/ml (0.358-4.75)
[2019-06-21 07:31] LABS: VITAMIN D, 25-HYDROXY 15.1 ng/mL (30-100)
[2019-06-21 08:00] VITALS: BP 118/88
--- NOTE | 2019-06-21 08:50 | NUR ---
PT MEDICATED WITH PO NORCO AND IV ZOFRAN PER PRN ORDER FOR C/O BACK PAIN AND NAUSEA/VOMITING. WILL MONITOR EFFECTIVENESS. STOOL SPECIMENS SENT PER ORDER.
--- NOTE | 2019-06-21 09:00 | NUR ---
Electrical Troubleshooter in to talk to patient. Patient states lives at home with alone. There are 2 steps in the home. Physician: none at this time [facility]acy: [facility] Home health services: none Patient's level of ADLs: INDEPENDENT Patient has working utilities: all working DME: none Follow-up physician's appointment after d/c: will be made by hospitalist nurse director upon discharge Does patient want to access PORTAL?: no Discharge plan discussed with patient, he lives at home alone,, is independent in adls and ambulation, he states he will return home when medically stable and denies any home needs, case management will follow. JULISA VINCENT
--- NOTE | 2019-06-21 09:22 | NUR ---
Dr. Greer notified of wound care recommendations
[2019-06-21 12:00] VITALS: BP 124/74
--- NOTE | 2019-06-21 14:06 | NUR ---
IN TO SEE PATIENT.
--- NOTE | 2019-06-21 14:40 | NUR ---
Occupational therapy orders received and chart reviewed. Patient declining an OT evaluation at this time, subjective information was obtained. Patient resting in bed, all needs within reach. Nursing notified of patient's location and status. Will attempt OT evaluation at a later date. Bethany Gomez, OTR/L
--- NOTE | 2019-06-21 14:42 | NUR ---
PHYSICAL THERAPY Attempted to see pt for evaluation however pt declining at this time not feeling well due to recent falls, back and neck pain. Agreeable for assessment in the AM will follow Sultana Everett PT
[2019-06-21 16:00] VITALS: BP 112/68
--- NOTE | 2019-06-21 16:17 | NUR ---
SPEECH PATHOLOGY Clinical swallowing evaluation completed as per orders due to dysphagia. Medical history includes syncope, hyponatremia, hypokalemia, HEP C, COPD, HTN, bronchitis, pneunonia. Patient endorsed difficulty swallowing and stated that he has a "raw, sore, dry" throat. Oral exam was WNL in terms of strength, ROM and coordination of lingual/labial/buccal skills. Patient presented with natural teeth. He consumed thin liquid by straw and in order to swallow he tilted his head back, then forward, then reported pain in his throat when swallowing and was moaning in pain. He did not wish to consume any other item at this time therefore other consistencies were not trialed. Patient stated that his swallowing has actually improved from previously and that he has to take small bites and alternate with a liquid to help get the food down. Recommend he remain on present diet at this time with follow up therapy to further assess swallow with foods. Patient requested something to help moisten his throat and clinician passed this request to his nurse, along with results of this assessment. She verbalized understanding. Refer to report in [facility] for further info. thank you for this referral. FIONA ESTRADA MSCCC-WELDER RAILCAR MECHANIC
[2019-06-21 16:56] LABS: ALBUMIN 2.6 gm/dl (3.1-4.5); ALKALINE PHOSPHATASE 145 U/L (45-117); BUN 18 mg/dl (7-24); CHLORIDE 99 mmol/L (98-107); CREATININE 1.33 mg/dL (0.70-1.30); POTASSIUM 3.5 mmol/L (3.5-5.1); SGOT/AST 71 IU/L (3-35); SGPT/ALT 35 U/L (12-78); SODIUM 135 mmol/L (136-145); TOTAL PROTEIN 5.6 gm/dL (6.4-8.2)
--- NOTE | 2019-06-21 17:19 | NUR ---
UPDATED ON RECENT LABS. NO NEW ORDERS AT THIS TIME.
--- NOTE | 2019-06-21 17:27 | NUR ---
NICOTINE GUM PROVIDED AT THIS TIME PER PRN ORDER FOR NICOTINE WITHDRAWAL.
[2019-06-21 20:00] VITALS: BP 133/80
[2019-06-22] VITALS: BP 143/109
[2019-06-22 00:30] VITALS: BP 144/80
[2019-06-22 06:34] LABS: BASO # 0.1 10*3/uL (0.0-0.1); BASO % 0.7 % (0.0-1.0); EOS # 0.3 10*3/uL (0.0-0.4); EOS % 3.3 % (1.0-4.0); HEMATOCRIT 32.8 % (42.0-52.0); HEMOGLOBIN 10.7 g/dl (14.0-18.0); LYMPH # 2.9 10*3/uL (1.3-4.4); LYMPH % 34.8 % (27.0-41.0); MEAN CORPUSCULAR HGB 31.6 pg (27.0-31.0); MEAN CORPUSCULAR HGB CONC 32.6 g/dl (33.0-37.0); MEAN PLATELET VOLUME 10.1 fl (9.6-12.3); MONO # 0.5 10*3/uL (0.1-1.0); MONO % 6.6 % (3.0-9.0); NEUT # 4.5 10*3/uL (2.3-7.9); NEUT % 54.2 % (47.0-73.0); PLATELET COUNT AUTOMATED 98 10*3/uL (130-400); RED BLOOD COUNT 3.39 10*6/uL (4.50-5.90); RED CELL DISTRI WIDTH 11.6 % (0-14.5); WHITE BLOOD COUNT 8.2 10*3/uL (4.8-10.8)
[2019-06-22 06:36] LABS: MEAN CELL VOLUME 96.8 fl (80.0-94.0)
[2019-06-22 06:50] LABS: CHLORIDE 101 mmol/L (98-107); POTASSIUM 3.4 mmol/L (3.5-5.1); SODIUM 137 mmol/L (136-145)
[2019-06-22 06:58] LABS: ALBUMIN 2.8 gm/dl (3.1-4.5); ALKALINE PHOSPHATASE 177 U/L (45-117); BUN 21 mg/dl (7-24); CREATININE 0.86 mg/dL (0.70-1.30); SGOT/AST 50 IU/L (3-35); SGPT/ALT 31 U/L (12-78); TOTAL PROTEIN 5.4 gm/dL (6.4-8.2)
[2019-06-22 08:00] VITALS: BP 118/84
--- NOTE | 2019-06-22 08:21 | NUR ---
PT MEDICATED WITH PO NORCO PER PRN ORDER FOR C/O BACK PAIN. RATES PAIN 11/19. WILL MONITOR EFFECTIVENESS. VSS. CALL LIGHT WITHIN REACH.
--- NOTE | 2019-06-22 08:25 | NUR ---
Patient not available for occupational therapy as he is eating breakfast. OTR will attempt at a later time. Anastacia Griffin OTR/misti
--- NOTE | 2019-06-22 08:45 | NUR ---
PHYSICAL THERAPY Carie completed full report to follow pt is independent in all transfers, amb >300 ft w no AD steady gait. Mod Ind 5 steps w HR. No complaints of dizziness or lightheaedeness. No skilled PT need at this time discharge PT services Sultana Everett PT
--- NOTE | 2019-06-22 08:45 | NUR ---
Occupational Therapy evaluation completed on 4 with full evaluation to follow. Recommend no further occupational therapy as patient is independent in ADLs and functional mobility without a device. Thank you for this referral. Anastacia Griffin OTR/l
--- NOTE | 2019-06-22 09:00 | NUR ---
case management visits with patient, he will return home when medically stable and denies any home needs, case management will follow
[2019-06-22] MEDS ORDERED: VITAMIN D350 MC2 PO (11:58)
[2019-06-22] MEDS ORDERED: HYDROCODONE-AC1 EAC1 PO (11:58)
[2019-06-22] MEDS ORDERED: CYCLOBENZAPRINE10 MG PO (11:59)
--- NOTE | 2019-06-22 12:39 | NUR ---
Discharge instructions reviewed with patient/family. Patient receptive and verbalizes understanding. Follow-up care arranged. Written instructions given to patient/family. BERT HINTON.
--- NOTE | 2019-06-22 12:40 | NUR ---
PT REFUSING DISCHARGE PHOTO.
--- NOTE | 2019-06-22 13:23 | NUR ---
SPEECH PATHOLOGY Patient was seen for treatment this pm. Patient had already finished lunch and was anxiously awaiting discharge paperwork to be completed so he could go home. Patient was dressed and belongings were packed. His lunch tray was present. He had consumed 90% of meal. He reported no difficulty with any item and stated that he used safety strategies such as small bites, eating slowly, chewing thoroughly and alternating food and liquid. He stated that his swallowing has improved and that he will continue to use safety strategies as they are helpful to him. Patient had no c/o pain and stated that he has been keeping his foods down. As patient is tolerating food and liquid, implementing strategies and is planning for discharge, services will be discontinued at this time. Thank you for this referral. It has been a pleasure taking part in this patient's care. FIONA ESTRADA MSCCC-PROJECT ENGINEERING DIRECTOR
== END 2019-06-22 12:40 | disposition home or self-care (01) | DRG 422 ==
LOC: ED 10:19 → EDHOLD 12:10 → 4E 12:10
PROVIDERS: Emergency Medicine; Internal Medicine; Internal Medicine Nephrology; ADMIT Internal Medicine
DX: E86.0 Dehydration (principal); E87.1 Hypo-osmolality and hyponatremia; R65.10 Systemic inflammatory response syndrome (SIRS) of non-infectious origin without acute organ dysfunction; E87.6 Hypokalemia; N17.9 Acute kidney failure, unspecified; S01.01XA Laceration without foreign body of scalp, initial encounter; X58.XXXA Exposure to other specified factors, initial encounter; E87.8 Other disorders of electrolyte and fluid balance, not elsewhere classified; E87.2 Acidosis; R17 Unspecified jaundice; R94.31 Abnormal electrocardiogram [ECG] [EKG]; F12.10 Cannabis abuse, uncomplicated; F17.210 Nicotine dependence, cigarettes, uncomplicated; J44.9 Chronic obstructive pulmonary disease, unspecified; M19.90 Unspecified osteoarthritis, unspecified site; F32.9 Major depressive disorder, single episode, unspecified; E55.9 Vitamin D deficiency, unspecified; R13.10 Dysphagia, unspecified; K92.1 Melena; S06.9X0D Unspecified intracranial injury without loss of consciousness, subsequent encounter; Y93.89 Activity, other specified; Y92.89 Other specified places as the place of occurrence of the external cause; Y99.8 Other external cause status; Z83.79 Family history of other diseases of the digestive system

== ENCOUNTER 2019-11-01 04:07 | Inpatient (IN) | payer OTHER ==
[~2019-11-01] VITALS: Ht 175.3 cm; Wt 71.2 kg
[2019-11-01] VITALS (10 sets, daily range): BP systolic 143–180; BP diastolic 77–114
[~2019-11-01 04:07] MED LIST changes: +HYDROCODONE-AC1 EAC1 PO; +VITAMIN D350 MC2 PO
[2019-11-01] MEDS ORDERED: DIASTAT PEDIAT2.5 MG MR (04:27)
[2019-11-01 05:34] LABS: ALKALINE PHOSPHATASE 83 U/L (45-117); BUN 12 mg/dl (7-24); CHLORIDE 91 mmol/L (98-107); CREATININE 0.68 mg/dL (0.70-1.30); POTASSIUM 3.8 mmol/L (3.5-5.1); SGOT/AST 49 IU/L (3-35); SGPT/ALT 33 U/L (12-78); SODIUM 130 mmol/L (136-145); TOTAL PROTEIN 7.8 gm/dL (6.4-8.2)
[2019-11-01 05:44] LABS: BASO # 0.1 10*3/uL (0.0-0.1); BASO % 1.1 % (0.0-1.0); EOS # 0.1 10*3/uL (0.0-0.4); EOS % 0.8 % (1.0-4.0); HEMATOCRIT 39.1 % (42.0-52.0); LYMPH # 1.4 10*3/uL (1.3-4.4); LYMPH % 19.5 % (27.0-41.0); MEAN CELL VOLUME 88.9 fl (80.0-94.0); MEAN CORPUSCULAR HGB 30.7 pg (27.0-31.0); MEAN CORPUSCULAR HGB CONC 34.5 g/dl (33.0-37.0); MEAN PLATELET VOLUME 8.7 fl (9.6-12.3); MONO # 0.6 10*3/uL (0.1-1.0); MONO % 8.9 % (3.0-9.0); NEUT % 69.4 % (47.0-73.0); PLATELET COUNT AUTOMATED 98 10*3/uL (130-400); RED CELL DISTRI WIDTH 12.8 % (0-14.5); WHITE BLOOD COUNT 7.2 10*3/uL (4.8-10.8)
--- NOTE | 2019-11-01 07:12 | NUR ---
REPORT RECIEVED FROM JOSE CRUZ RN PT GIVEN WARM BLANKET PT REQUESTING PAIN MEDICATION PT ALERT AND ORIENTED
--- NOTE | 2019-11-01 08:20 | NUR ---
DR LOVE NOTIFIED OF LA 4.2, NO NEW ORDERS OBTAINED.
[2019-11-01 11:23] LABS: URINE AMPHETAMINES < 1000 (1000ng/ml); URINE BARBITURATES < 200 (200ng/ml); URINE BENZODIAZEPINES > 200 (200ng/ml); URINE CANNABINOIDS (THC) > 50 (50ng/ml); URINE COCAINE < 300 (300ng/ml); URINE METHADONE < 300 (300ng/ml); URINE OPIATES < 300 (300ng/ml)
[2019-11-01 11:27] LABS: URINE PHENCYCLIDINE < 25 (25ng/ml)
[2019-11-01 11:40] LABS: BILIRUBIN NEGATIVE (NEGATIVE); BLOOD TRACE-INTACT (NEGATIVE); CLARITY CLEAR (CLEAR); COLOR YELLOW (YELLOW); EPITHELIAL CELLS 0-2; GLUCOSE NEGATIVE (NEGATIVE); KETONE 1+ (NEGATIVE); LEUKO ESTERASE NEGATIVE (NEGATIVE); NITRITE NEGATIVE (NEGATIVE); PH 6.5 (5.0-9.0); RBC 0-2 rbc/hpf (0-2); SPECIFIC GRAVITY 1.005 (1.005-1.030); UROBILINOGEN 0.2 E.U./dl (0.2-1.0); WBC 0-2 wbc/hpf (0-5)
--- NOTE | 2019-11-01 12:00 | NUR ---
Medicated for c/o pain to low back and rt. flank. 01/19
--- NOTE | 2019-11-01 12:31 | NUR ---
iNTERMITTENTLY Ssleeping. Remains hypertensive, Dr. Baeza aware and orders were recieved.
--- NOTE | 2019-11-01 12:45 | NUR ---
Medicated for persistant hypertension of 180/114.
--- NOTE | 2019-11-01 14:45 | NUR ---
Labetelol effective to reduce blood pressure.
--- NOTE | 2019-11-01 17:33 | NUR ---
Medicated for c/o pain 12/20.
--- NOTE | 2019-11-01 20:09 | NUR ---
RESIDENT CALLED FOR BP 173/113 STATED TO WATCH FOR 30-60MIN D/T JUST GIVING ATIVAN IV
--- NOTE | 2019-11-01 23:52 | NUR ---
NORCO GIVEN FOR PAIN RATED A 10 TO THE BACK
[2019-11-02] VITALS (11 sets, daily range): BP systolic 132–159; BP diastolic 91–111
--- NOTE | 2019-11-02 00:35 | NUR ---
PAIN MEDICATION EFFECTIVE, PATIENT SLEEPING COMFORTABLY
[2019-11-02 06:23] LABS: BUN 11 mg/dl (7-24); CHLORIDE 100 mmol/L (98-107); POTASSIUM 3.5 mmol/L (3.5-5.1); SODIUM 134 mmol/L (136-145)
[2019-11-02 06:28] LABS: BASO % 0.7 % (0.0-1.0); EOS # 0.1 10*3/uL (0.0-0.4); EOS % 2.9 % (1.0-4.0); HEMATOCRIT 39.1 % (42.0-52.0); LYMPH % 22.9 % (27.0-41.0); MEAN CELL VOLUME 89.9 fl (80.0-94.0); MEAN CORPUSCULAR HGB 30.6 pg (27.0-31.0); MEAN PLATELET VOLUME 9.5 fl (9.6-12.3); MONO # 0.5 10*3/uL (0.1-1.0); MONO % 10.4 % (3.0-9.0); NEUT # 2.8 10*3/uL (2.3-7.9); NEUT % 62.7 % (47.0-73.0); RED BLOOD COUNT 4.35 10*6/uL (4.50-5.90); WHITE BLOOD COUNT 4.5 10*3/uL (4.8-10.8)
[2019-11-02 06:32] LABS: PLATELET COUNT AUTOMATED 61 10*3/uL (130-400)
--- NOTE | 2019-11-02 08:37 | NUR ---
PATIENT ALERT AND ORIENTED X3 THIS AM. VERY GRUFF WITH RN REGARDING RN PULLING TAPE OFF IV. PATIENT STATED HE WAS WANTING TO LEAVE. RN AND TALKED WITH PATIENT. MEDICATED WITH ROBAXIN AND ATIVAN PER PRN ORDERS. WILL CONTINUE TO MONITOR.
--- NOTE | 2019-11-02 10:41 | NUR ---
PATIENT VERY ANXIOUS. WAS UP TO [facility] W/DIARRHEA. MEDICATED WITH IMMODIUM, BENTYL AND ATIVAN PER PRN ORDERS. WILL CONTINUE TO MONITOR.
--- NOTE | 2019-11-02 11:51 | NUR ---
MEDICATED WITH VISTARIL FOR ANXIETY & NEW NICOTINE PATCH PLACED WITH OPSITE OVER IT TO RT SHOULDER.. GAIT SHAKEY BUT ABLE TO AMB TO [facility] WITHOUT ASSISTANCE
--- NOTE | 2019-11-02 12:43 | NUR ---
LANE ATTENDANT FAXED CLINICAL INFORMATION TO INSURANCE.
--- NOTE | 2019-11-02 14:13 | NUR ---
PATIENT INSISTED ON PAIN PILL & ATIVAN FOR PAIN & TO HELP HIM SLEEP . MILD TREMORS SEEN IN UPPER EXTREMITIES. PT CO-OPERATIVE WITH CARE
--- NOTE | 2019-11-02 14:55 | NUR ---
INTERMITTENTLY DOZING SINCE MEDICATED BUT STILL OCCASIONALLY MOANS
--- NOTE | 2019-11-02 16:27 | NUR ---
MEDICATED WITH ATIVAN IV AND ROBAXIN PO AFTER CALLING THE DOCTORS ABOUT PATIENT WANTING ATIVAN TO HELP HIM SLEEP BUT HE HAS NO TREMORS, NO HALLUCINATIONS, NO SWEATS OR OTHER COMPLAINTS EXCEPT SORE. OK TO GIVE ATIVAN DESPITE NO MODERATE TO SEVERE SYMPTOMS PER PHYSICIANS.
--- NOTE | 2019-11-02 16:46 | NUR ---
LAYING QUIETLY WITH EYES CLOSED ON HIS SIDE. RESP EASY & NONLABORED
--- NOTE | 2019-11-02 17:25 | NUR ---
PATIENT GOT UP TO USE THE URINAL. THEN HE POPPED HIS HEAD OUT THE CURTAIN AND SAID HELLO TO THE STAFF, LEANED TOWARD THE CURTAIN THINKING IT WAS A WALL AND CONTINUED TO FALL TO THE FLOOR. PATIENT DID NOT HIT HIS HEAD AND DENIES ALL C/O. PATIENT ASSISTED UP AND BACK TO BED. PER THE PATIENT HE IS "EMBARRASSED" AND THINKS HE MAY SIGN HIMSELF OUT AMA. DR HOLLAND NOTIFIED, TRIM TECHNICIAN NOTIFIED
--- NOTE | 2019-11-02 18:20 | NUR ---
ROUTINE LIBRIUM GIVEN. SITTING ON SIDE OF BED TO EAT
--- NOTE | 2019-11-02 20:26 | NUR ---
1930 UP TO [facility] [place]. GAIT STEADY. BED ALARM INTACT. HEP LOCK INTACT. NO TREMORS NOTED. NO C/O'S VOICED. NO DISTRESS NOTED. PULSE OX 97% ON RA.
--- NOTE | 2019-11-02 21:04 | NUR ---
Amos AN FOR C/O'S SHAN REYNAS.
--- NOTE | 2019-11-02 21:05 | NUR ---
2105 NORCO PO FOR C/O'S PAIN R BACK. WILL MONITOR FOR EFFECTIVENESS
--- NOTE | 2019-11-02 21:37 | NUR ---
2137 ATIVAN 2MG IV PER PT REQUEST FOR ANXIETY. NO TREMORS OF EVIDENCE OF DT'S NOTED. WILL MONITOR
--- NOTE | 2019-11-02 22:04 | NUR ---
2204 EARLIER BENTYL EFFECTIVE 220 EARLIER PAIN MED EFFECTIVE. 2237 SL RELIEF OBTAINED FROM EARLIER ATIVAN.
--- NOTE | 2019-11-02 23:59 | NUR ---
ATIVAN 2MG IV GIVEN FOR CONT C/O'S ANXIETY. WILL MONITOR.
[2019-11-03] VITALS: BP 160/100
--- NOTE | 2019-11-03 00:53 | NUR ---
0053 ROUTINE LIBRIUM GIVEN, VISTARIL GIVEN FOR ANXIETY AND TRAZADONE GIVEN FOR SLEEP. WILL MONITOR.
--- NOTE | 2019-11-03 00:59 | NUR ---
0059 EARLIER ATIVAN SL EFFECTIVE.
--- NOTE | 2019-11-03 01:53 | NUR ---
0153 REMAINS AWAKE. EARLIER MEDS NOT EFFECTIVE YET.
--- NOTE | 2019-11-03 02:49 | NUR ---
0249 NORCO PO FOR C/O'S LEFT SIDED BACK PAIN. DOES NOT RATE. IS NOT SLEEPING FROM EARLIER MEDS. WILL MONITOR.
--- NOTE | 2019-11-03 03:49 | NUR ---
0349 EARLIER NORCO EFFECTIVE. SITTING UP ON THE SIDE OF THE BED. NO DISTRESS NOTED.
[2019-11-03 04:00] VITALS: BP 152/102
--- NOTE | 2019-11-03 06:15 | NUR ---
PT IS FORGETFUL. KEEPS GETTING INVOLVED IN RN'S CONVERSATIONS AT THIS DESK. ALERT TO PLACE AND TIME. HEP LOCK INTACT. NO TREMORS NOTED. CONDITION GUARDED,
--- NOTE | 2019-11-03 07:58 | NUR ---
PATIENT LEFT AGAINST MEDICAL ADVICE. AT BEDSIDE AND TALKED WITH PATIENT. IV AND CLOTH PRINTING INSPECTOR DISCONTINUED. ALL PERSONAL BELONGINGS SENT WITH PATIENT.
== END 2019-11-03 07:58 | disposition left against medical advice (07) | DRG 770 ==
LOC: ED 04:07 → ICCU 06:18 → EDHOLD 06:18 → ICCU 09:41
PROVIDERS: Emergency Medicine; Internal Medicine; Student in an Organized Health Care Education/Training Program; ADMIT Family Medicine
DX: F10.239 Alcohol dependence with withdrawal, unspecified (principal); S32.019A Unspecified fracture of first lumbar vertebra, initial encounter for closed fracture; E87.1 Hypo-osmolality and hyponatremia; E87.2 Acidosis; F17.210 Nicotine dependence, cigarettes, uncomplicated; I10 Essential (primary) hypertension; D64.9 Anemia, unspecified; R65.11 Systemic inflammatory response syndrome (SIRS) of non-infectious origin with acute organ dysfunction; R76.8 Other specified abnormal immunological findings in serum; M19.90 Unspecified osteoarthritis, unspecified site; J41.0 Simple chronic bronchitis; S22.089A Unspecified fracture of T11-T12 vertebra, initial encounter for closed fracture; E55.9 Vitamin D deficiency, unspecified; G90.8 Other disorders of autonomic nervous system; K76.0 Fatty (change of) liver, not elsewhere classified; F32.9 Major depressive disorder, single episode, unspecified; I25.10 Atherosclerotic heart disease of native coronary artery without angina pectoris; K44.9 Diaphragmatic hernia without obstruction or gangrene; K57.30 Diverticulosis of large intestine without perforation or abscess without bleeding; Z53.29 Procedure and treatment not carried out because of patient's decision for other reasons; F12.10 Cannabis abuse, uncomplicated; W01.0XXA Fall on same level from slipping, tripping and stumbling without subsequent striking against object, initial encounter; Y93.89 Activity, other specified; Y92.89 Other specified places as the place of occurrence of the external cause; Y99.8 Other external cause status; Z87.01 Personal history of pneumonia (recurrent); Z86.14 Personal history of Methicillin resistant Staphylococcus aureus infection; Z83.79 Family history of other diseases of the digestive system; Z80.7 Family history of other malignant neoplasms of lymphoid, hematopoietic and related tissues; Z87.820 Personal history of traumatic brain injury; Z71.6 Tobacco abuse counseling